=== PATIENT | female | born 1960 | race African-American/Black ===

== ENCOUNTER → 2016-08-12 | Outpatient (CLI) | payer MEDICAID ==
[2016-08-12 13:44] LABS: BILIRUBIN,URINE NEGATIVE (NEGATIVE); KETONES,URINE NEGATIVE (NEGATIVE); LEUKOCYTE ESTERASE ,URINE 3+ (NEGATIVE); NITRITE,URINE NEGATIVE (NEGATIVE); PH,URINE 8 (5-9); PROTEIN,URINE NEGATIVE (NEGATIVE); UROBILINOGEN,URINE NORMAL (NORMAL)
[2016-08-12 13:55] LABS: SQUAMOUS EPITHELIAL CELL,UR RARE /HPF; WAXY CASTS,URINE 0-2 /LPF; WBC,URINE 25-50 /HPF
== END ==
PROVIDERS: ATTEND Family Medicine
DX: N39.0 Urinary tract infection, site not specified (principal)
CPT/HCPCS: 81000; 87088

== ENCOUNTER → 2016-10-25 | Outpatient (CLI) | payer MEDICAID ==
--- NOTE | 2016-10-25 19:08 | Diagnostic Imaging Report ---
EXAMINATION: Bilateral foot radiographs with Three views obtained on both sides. INDICATION: Bilateral foot pain. FINDINGS: There is no fracture, dislocation or radiopaque foreign body. Joint alignment is satisfactory. Calcaneal spurs are seen, bilaterally. IMPRESSION: No acute process. Dictated by: Dictated on workstation # [id number]
== END ==
LOC: RAD 15:26
PROVIDERS: ATTEND Family Medicine
DX: M79.671 Pain in right foot (principal); M79.672 Pain in left foot

== ENCOUNTER 2017-02-05 15:07 | Emergency (ER) | payer MEDICAID ==
[~2017-02-05] VITALS: Ht 175.3 cm; Wt 86.2 kg
[2017-02-05] MEDS ORDERED: VALP250S3 (15:18)
[2017-02-05] MEDS ORDERED: DONE10TA41 (15:18)
[2017-02-05] MEDS ORDERED: [UNRECOGNIZED DRUG - CODE] (15:18)
[2017-02-05] MEDS ORDERED: LACT10SO (15:18)
[2017-02-05] MEDS ORDERED: FOLI1TAB24 (15:18)
[2017-02-05] MEDS ORDERED: BUPR150T7 (15:18)
[2017-02-05] MEDS ORDERED: MEMA28CA (15:18)
[2017-02-05] MEDS ORDERED: BUPR300T51 (15:18)
[2017-02-05] MEDS ORDERED: BENZ1TAB6 (15:18)
--- NOTE | 2017-02-05 17:00 | ED General ---
General Chief Complaint: Trauma-Non Activation Stated Complaint: FALL Nursing Triage Note: Patient found to be laying face down in another patients room. unknown if patient had a fall or layed self onto floor Nursing Sepsis Screen: No Definite Risk Source of Information: Patient, Caregiver, EMS Exam Limitations: Other (cognitive impairments) History of Present Illness Time Seen by Provider: 15:07 Initial Comments This 56-year-old woman is brought to the emergency room via EMS after she was found lying face down and another resident's room at [facility]. No fall was witnessed and no injury was evident. Patient denies any pain. Her behavior is at baseline per residential staff report. She is being brought to the emergency room as a precaution. Fingerstick blood sugar was 118. Allergies and Home Medications Home Medications Benztropine Mesylate 1 Mg Tablet, (Reported) Bupropion HCl 300 Mg Tab.er.24h, (Reported) Bupropion HCl 150 Mg Tab.er.24h, (Reported) Donepezil HCl 10 Mg Tablet, (Reported) Folic Acid 1 Mg Tablet, (Reported) Lactulose 10 Gm/15 Ml Solution, (Reported) Memantine HCl 28 Mg Cap.spr.24, (Reported) Risperidone 25 Mg/2 Ml Inj, (Reported) Valproic Acid (As Sodium Salt) 250 Mg/5 Ml Solution, (Reported) Constitutional: no symptoms reported EENTM: no symptoms reported Respiratory: no symptoms reported Cardiovascular: no symptoms reported Gastrointestinal: no symptoms reported Genitourinary: no symptoms reported : No Musculoskeletal: no symptoms reported Skin: no symptoms reported Psychiatric/Neurological: No Symptoms Reported, Other (cognitive impairments at baseline) Hematologic/Lymphatic: No Symptoms Reported Immunological/Allergic: no symptoms reported Past Raexmms-Iuknpj-Sktaft Hx Patient Social History Alcohol Use: Denies Use Recreational Drug Use: No Smoking Status: Never a Smoker Recent Foreign Travel: No Contact w/Someone Who Travel: No Recent Infectious Disease Expo: No Surgeries History of Surgeries: No (none known) Respiratory History of Respiratory Disorde: No Cardiovascular History of Cardiac Disorders: Yes Cardiac Disorders: Hypertension Neurological History of Neurological Disord: Yes Neurological Disorders: Dementia Reproductive System : No Genitourinary History of Genitourinary Disor: Yes Genitourinary Disorders: UTI-Chronic Gastrointestinal History of Gastrointestinal Di: Yes Gastrointestinal Disorders: Chronic Constipation Musculoskeletal History of Musculoskeletal Dis: Yes Musculoskeletal Disorders: Spasms Endocrine History of Endocrine Disorders: Yes Endocrine Disorders: Diabetes, Non-Insulin dep Cancer History of Cancer: No Psychosocial History of Psychiatric Problem: Yes Behavioral Health Disorders: Anxiety, Schizophrenia, Depression Integumentary History of Skin or Integumenta: No Physical Exam Vital Signs Vital Sign - Last 12Hours 02/05/17 15:08 Pulse 104 Resp 18 B/P (MAP) 140/76 Pulse Ox 98 Capillary Refill : Less Than 3 Seconds General Appearance: No Apparent Distress, WD/WN HEENT: PERRL/EOMI, TMs Normal, Normal ENT Inspection, Pharynx Normal Neck: Normal Inspection, Non Tender, Supple Respiratory: Chest Non Tender, Lungs Clear, Normal Breath Sounds, No Accessory Muscle Use, No Respiratory Distress Cardiovascular: Regular Rate, Rhythm, No Edema, No Murmur Gastrointestinal: Normal Bowel Sounds, Non Tender, Soft Back: Normal Inspection, No Vertebral Tenderness Extremity: Normal Inspection, Normal Range of Motion, Non Tender, No Pedal Edema Neurologic/Psychiatric: Alert, No Motor/Sensory Deficits, Normal Mood/Affect, Other (cognitive impairments at baseline with no new deficits) Skin: Normal Color, Warm/Dry Progress/Results/Core Measures Results/Orders Vital Signs/I&O Vital Sign - Last 12Hours 02/05/17 02/05/17 15:08 17:25 Pulse 104 84 Resp 18 18 B/P (MAP) 140/76 Pulse Ox 98 99 Blood Pressure Mean: 97 Progress Note : Progress Note There was no evidence of injury on patient's examination. She denies having any pain. She was able to ambulate independently and freely. I discussed the situation with a nurse at [facility]. Patient appears to be at her baseline function. No injury was suspected or observed when she was at the residential. Patient was not observed to fall but was found on the floor. It is uncertain if she laid on the floor or if she had a fall. Departure Impression Impression: Primary Impression: General medical exam Disposition: 01 HOME, SELF-CARE Condition: Stable/Unchanged Departure-Patient Inst. Decision time for Depature: 16:55 Referrals: KAIA DUMAS DO (PCP/Family) Primary Care Physician Patient Instructions: NO INSTRUCTIONS GIVEN Add. Discharge Instructions: Contact primary care provider or return to the ER if there are any complications or concerns. All discharge instructions reviewed with patient and/or family. Voiced understanding. ALEXIS TOSCANO MD Feb 05, 2017 17:00
[2017-02-05 17:25] VITALS: BP 128/94
== END 2017-02-05 17:15 | disposition home or self-care (01) ==
LOC: EDUNIT# 15:07 → ER 15:07
DX: Z01.89 Encounter for other specified special examinations (principal); F03.90 Unspecified dementia, unspecified severity, without behavioral disturbance, psychotic disturbance, mood disturbance, and anxiety; I10 Essential (primary) hypertension; E11.9 Type 2 diabetes mellitus without complications; K59.09 Other constipation; F41.9 Anxiety disorder, unspecified; F20.9 Schizophrenia, unspecified; F32.9 Major depressive disorder, single episode, unspecified
CPT/HCPCS: 99283

== ENCOUNTER 2018-08-20 14:13 | Emergency (ER) | payer MEDICAID ==
[~2018-08-20] VITALS: Ht 165.1 cm; Wt 77.1 kg
[~2018-08-20 14:13] MED LIST: BENZ1TAB6; BUPR150T7; BUPR300T51; DONE10TA41; FOLI1TAB24; LACT10SO; MEMA28CA; VALP250S3; [UNRECOGNIZED DRUG - CODE]
[2018-08-20] MEDS ORDERED: LIDOCAINE PF 1% 5 ML (XYLOCAINE) AMP ONE (14:23)
--- NOTE | 2018-08-20 14:36 | ED Head Injury ---
General Chief Complaint: Laceration Stated Complaint: FALL Nursing Triage Note: THE PT ARRIVAL BY HALF-WAY POV. ASSISTED TO THE ROOM BY WHEELCHAIR. NO DISTRESS OR ACTIVE BLEEDING IS SEEN ON ARRIVAL. Source: patient Exam Limitations: no limitations History of Present Illness Date Seen by Provider: Aug 20, 2018 Time Seen by Provider: 14:33 Initial Comments To ER from [facility] with reports of facial injury. Patient tripped and fell she was walking, there is a 1 similar laceration just inferior to the nose to the upper lip. This does not go all the way through. Patient is nonverbal demented. This was a witnessed fall and there was no loss of consciousness. Occurred: just prior to arrival Severity: moderate Method of Injury: fell Loss of Consciousness: no loss of consciousness Allergies and Home Medications Patient Home Medication List Home Medication List Reviewed: Yes Review of Systems Review of Systems Constitutional: see HPI Eyes: No Symptoms Reported Ears, Nose, Mouth, Throat: no symptoms reported Respiratory: no symptoms reported Cardiovascular: no symptoms reported Genitourinary: no symptoms reported Musculoskeletal: no symptoms reported Skin: see HPI Psychiatric/Neurological: No Symptoms Reported Past Jviizsp-Ehurbi-Mdvuib Hx Patient Social History Recent Foreign Travel: No Contact w/Someone Who Travel: No Recent Infectious Disease Expo: No Physical Abuse: No Sexual Abuse: No Mistreated: No Fear: No Past Medical History Surgeries: No (none known) Respiratory: No Cardiac: Yes Hypertension Neurological: Yes Dementia Genitourinary: Yes UTI-Chronic Gastrointestinal: Yes Chronic Constipation Musculoskeletal: Yes Spasms Endocrine: Yes Diabetes, Non-Insulin dep Cancer: No Psychosocial: Yes Anxiety, Schizophrenia, Depression Integumentary: No Physical Exam Vital Signs Vital Signs - First Documented 08/20/18 14:27 Temp 97.5 Pulse 95 Resp 18 B/P (MAP) 122/72 (89) Capillary Refill : Less Than 3 Seconds Height, Weight, BMI Height: 5'5.00" Weight: 170lbs. oz. 77.901604mq; BMI Method:Estimated General Appearance: WD/WN, no apparent distress HEENT: PERRL/EOMI, normal ENT inspection, TMs normal, other (1 cm laceration with Specific cutaneous tissues to the upper lip. This is not a through to the buccal mucosa.) Neck: non-tender, full range of motion Respiratory: no respiratory distress, no accessory muscle use Gastrointestinal: normal bowel sounds, non tender Extremities: normal range of motion, non-tender Psychiatric: alert, oriented x 3 Crainal Nerves: normal hearing, normal speech, PERRL Skin: normal color, warm/dry [place] Coma Score Best Eye Response: (4) Open Spontaneously Best Verbal Response: (5) Oriented Best Motor Response: (6) Obeys Commands [place] Total: 15 Procedures/Interventions Wound Location: Face Wound Length (cm): 1.5 Wound's Depth, Shape: linear, sub Q Wound Explored: clean Irrigated w/ Saline (ccs): 30 Anesthesia: 1% Lidocaine Volume Anesthetic (ccs): 1 Suture: Ethlion Suture Size: 5-0 Number of Sutures: 3 Layer Closure?: 1 Number Deep Layer Sutures: 0 Progress Anesthetized with 1% lidocaine without epinephrine, scrubbed with chlorhexidine/ saline solution, closed with 3 simple interrupted sutures size 5-0 Ethilon. Progress/Results/Core Measures Results/Orders My Orders Orders - KIKE MCGHEE APRN Lidocaine Pf 1% 5 Ml Injection (Xylocain (08/20/18 14:23) Ct Head/Cervical Spine Wo (08/20/18 14:32) Medications Given in ED Current Medications Medications Dose Ordered Sig/Billie Route Start Time Stop Time Status Last Admin Dose Admin Lidocaine HCl 5 ml STK-MED ONCE .ROUTE 08/20/18 14:23 08/20/18 14:26 DC 08/20/18 14:37 5 ML Vital Signs/I&O 08/20/18 14:27 Temp 97.5 Pulse 95 Resp 18 B/P (MAP) 122/72 (89) Blood Pressure Mean: 89 Departure Communication (Admissions) 1447-she is unable to hold still for CT scan, this was a witnessed fall without loss of consciousness no vomiting, she has age less than 65 and is not on anticoagulants. We will defer CT scanning at this time. Impression Primary Impression: Fall at group home Qualified Codes: W19.XXXA - Unspecified fall, initial encounter; Y92.129 - Unspecified place in group home as the place of occurrence of the external cause Additional Impression: Facial laceration Qualified Codes: S01.81XA - Laceration without foreign body of other part of head, initial encounter Disposition: 01 HOME, SELF-CARE Condition: Stable Departure-Patient Inst. Decision time for Depature: 14:36 Referrals: KAIA DUMAS DO (PCP/Family) Primary Care Physician Patient Instructions: Laceration Repair With Stitches (DC) Add. Discharge Instructions: 1. Return to ER for any concerns 2. Stitches out in 5-7 days. This may be done at the group home or back here in the emergency room. All discharge instructions reviewed with patient and/or family. Voiced understanding. Images Head/Face 1 - Tenderness KIKE MCGHEE [employer]CIAL SERVICES COUNSELOR Aug 20, 2018 14:36
[2018-08-20 14:50] VITALS: BP 122/72
== END 2018-08-20 14:52 | disposition home or self-care (01) ==
LOC: EDUNIT# 14:13 → ER 14:14
DX: S01.81XA Laceration without foreign body of other part of head, initial encounter (principal); I10 Essential (primary) hypertension; F03.90 Unspecified dementia, unspecified severity, without behavioral disturbance, psychotic disturbance, mood disturbance, and anxiety; E11.9 Type 2 diabetes mellitus without complications; F41.9 Anxiety disorder, unspecified; F20.9 Schizophrenia, unspecified; R40.2142 Coma scale, eyes open, spontaneous, at arrival to emergency department; R40.2252 Coma scale, best verbal response, oriented, at arrival to emergency department; R40.2362 Coma scale, best motor response, obeys commands, at arrival to emergency department; Z87.440 Personal history of urinary (tract) infections; Z87.19 Personal history of other diseases of the digestive system; W01.0XXA Fall on same level from slipping, tripping and stumbling without subsequent striking against object, initial encounter; Y92.129 Unspecified place in nursing home as the place of occurrence of the external cause; Y93.01 Activity, walking, marching and hiking
CPT/HCPCS: 12011